=== PATIENT | female | born 1955 | race Caucasian/White ===

== ENCOUNTER 2020-03-10 12:53 | Outpatient (CLI) | payer MEDICARE, OTHER, SELFPAY ==
--- NOTE | 2020-03-10 13:09 | XR_ITS ---
WS: [id number] PROCEDURE: XR chest 2V* [id number] CLINICAL INFORMATION: COUGH COMPARISON: None. FINDINGS: Heart: Normal cardiac silhouette. Lungs: Mild chronic emphysematous changes. No acute pulmonary infiltrates. No focal pneumonia. Bones: Postoperative changes lower cervical spine. Cholecystectomy clips. XR/XR chest 2V* [id number] IMPRESSION: Mild chronic emphysematous changes. No acute pulmonary infiltrates.
== END 2020-03-10 12:54 | disposition home or self-care (01) ==
LOC: RADWPI 13:05
PROVIDERS: PCP Nurse Practitioner Family; Visit Provider Nurse Practitioner Family
DX: R05 Cough (principal); J43.9 Emphysema, unspecified
CPT/HCPCS: 71046